=== PATIENT | female | born 1975 | race Caucasian/White ===

== ENCOUNTER 2018-02-10 08:06 | Inpatient (IN) | payer MEDICAID, OTHER ==
[2018-02-10 08:06] VITALS: BMI 41.5
[2018-02-10] MEDS ORDERED: Albuterol-Ipratrop 3 mg / 0.5 (3 ml) UD INH STA (09:27)
[2018-02-10] MEDS ORDERED: MethylPREDNISolone 40 mg Vial IVP STA (09:29)
[2018-02-10] MEDS ORDERED: Albuterol-Ipratrop 3 mg / 0.5 (3 ml) UD ONE (09:38)
[2018-02-10 09:59] LABS: BASO % 0.5 % (0.0-2.0); EOS # 0.3 K/uL (0.0-0.7); EOS % 3.4 % (0.0-4.0); HEMOGLOBIN 6.7 g/dL (11.0-16.0); LYMPH # 1.2 K/uL (1.0-4.3); LYMPH % 13.2 % (20.0-40.0); MEAN CORPUSCULAR HEMOGLOBIN 16.3 pg (27.0-31.0); MEAN CORPUSCULAR HGB CONC 28.7 g/dL (33.0-37.0); MEAN PLATELET VOLUME 8.3 fL (7.2-11.7); MONO # 0.8 K/uL (0.0-0.8); MONO % 9.7 % (0.0-10.0); NEUT # 6.4 K/uL (1.8-7.0); NEUT % 73.2 % (50.0-75.0); RBC 4.13 Mil/uL (3.80-5.20); RED CELL DISTRIBUTION WIDTH 21.2 % (11.5-14.5); WHITE BLOOD COUNT 8.7 K/uL (4.8-10.8)
[2018-02-10 10:09] LABS: MEAN CELL VOLUME 56.8 fL (81.0-99.0)
[2018-02-10 10:26] LABS: ALB/GLOB RATIO 1.2 (1.0-2.1); ALBUMIN 4.3 g/dL (3.5-5.0); ALT/SGPT 22 U/L (9-52); AST/SGOT 35 U/L (14-36); BLOOD UREA NITROGEN 11 mg/dL (7-17); CALCIUM 8.6 mg/dl (8.6-10.4); GFR NON-AFRICAN AMERICAN > 60
--- NOTE | 2018-02-10 10:28 | RAD ---
Date of service: 02/10/2018 HISTORY: r/o PNA COMPARISON: No prior. TECHNIQUE: Chest PA and lateral FINDINGS: LUNGS: No active pulmonary disease. PLEURA: No significant pleural effusion identified. No pneumothorax apparent. CARDIOVASCULAR: No aortic atherosclerotic calcification present. Normal cardiac size. No pulmonary vascular congestion. OSSEOUS STRUCTURES: No significant abnormalities. VISUALIZED UPPER ABDOMEN: Normal. OTHER FINDINGS: None. IMPRESSION: No active disease.
--- NOTE | 2018-02-10 10:30 | C.PDOC ---
History Of Present Illness 42 year old female with a history of uterine fibroids, heavy menstruations, and iron deficiency anemia presents to the ED for evaluation of dry cough associated with intermittent tactile fever, chills, dizziness, headache, and palpitations for 2 weeks. Cough worsened this week to be productive of yellow sputum. The patient reports the cough is worse at night with audible wheezing. She admits to taking Robitussin with no improvement in her symptoms. The patient states her mother and siblings have asthma, she has not been diagnosed with asthma, and has never used a nebulizer or inhaler. No sick contacts, recent antibiotic use, or recent travel. LMP 01/15/18. Denies hemoptysis, nausea, vomiting, diarrhea, abdominal pain, melena, sore throat, weakness, numbness, vision changes, and any other associated symptoms. Time Seen by Provider: 02/10/18 08:30 Chief Complaint (Nursing): Cough, Cold, Congestion History Per: Patient, [employer] (Raquel Gallagher) History/Exam Limitations: no limitations Onset/Duration Of Symptoms: Other (x2 months. ) Current Symptoms Are (Timing): Still Present Recent travel outside of the [place]: No Past Medical History Reviewed: Historical Data, Nursing Documentation, Vital Signs Vital Signs: Last Vital Signs Temp 99.3 F 02/10/18 08:14 Pulse 90 02/10/18 08:14 Resp 18 02/10/18 08:14 BP 118/66 02/10/18 08:14 Pulse Ox 99 02/10/18 08:14 - Medical History PMH: Anemia Other PMH: Fibroids, Heavy Menstruation Surgical History: - [facility] Procedures BILAT TUBAL DIVISION NEC (11/10/14) LOW CERVICAL (11/10/14) Family History: States: Unknown Family Hx - Social History Hx Tobacco Use: No Hx Alcohol Use: No Hx Substance Use: No - Immunization History Hx Tetanus Toxoid Vaccination: No Hx Influenza Vaccination: No Hx Pneumococcal Vaccination: No Review Of Systems Except As Marked, All Systems Reviewed And Found Negative. Constitutional: Positive for: Fever (subjective. ), Chills, Malaise Eyes: Negative for: Vision Change ENT: Positive for: Nose Congestion. Negative for: Ear Pain, Nose Discharge, Throat Pain (sore. ), Throat Swelling Cardiovascular: Positive for: Palpitations, Light Headedness. Negative for: Chest Pain Respiratory: Positive for: Cough (dry), Shortness of Breath Gastrointestinal: Negative for: Nausea, Vomiting, Abdominal Pain, Diarrhea Genitourinary: Negative for: Dysuria, Frequency Musculoskeletal: Negative for: Neck Pain, Back Pain Skin: Negative for: Rash Neurological: Positive for: Headache. Negative for: Weakness, Numbness, Inco ordination Physical Exam - Physical Exam Appears: Well, Non-toxic, No Acute Distress Skin: Warm, Dry Head: Atraumatic, Normacephalic Eye(s): bilateral: Normal Inspection, PERRL, EOMI Ear(s): Bilateral: Normal Nose: Normal, No Discharge Oral Mucosa: Moist Throat: Normal, No Erythema, No Exudate Neck: Normal ROM, Supple Lymphatic: Normal Exam Cardiovascular: Rhythm Regular, No Murmur Respiratory: No Accessory Muscle Use, No Rales, Rhonchi (intermittent bila terally), Wheezing (expiratory wheezing bilaterally.) Gastrointestinal/Abdominal: Normal Exam, Bowel Sounds (normoactive), No Soft, Tenderness Back: Normal Inspection, No CVA Tenderness, No Paraspinal Tenderness Extremity: Normal ROM (x4) Extremity: Bilateral: Atraumatic, No Pedal Edema, Normal Color And Temperature, Normal ROM Pulses: Left Radial: Normal, Right Radial: Normal Neurological/Psych: Oriented x3, Normal Speech, Normal Cognition, Normal Motor, Normal Sensation Gait: Steady ED Course And Treatment - Laboratory Results Result Diagrams: 02/10/18 09:52 02/10/18 09:52 Lab Interpretation: Abnormal Urine POC: Negative O2 Sat by Pulse Oximetry: 99 (RA) Pulse Ox Interpretation: Normal - Radiology CXR: Viewed By Me, Read By Radiologist CXR Interpretation: Yes: No Acute Disease - Other Rad CXR X-Ray: Viewed By Me, Read By Radiologist Interpretation: HISTORY: r/o PNA. COMPARISON: No prior. TECHNIQUE: Chest PA and lateral. FINDINGS: LUNGS: No active pulmonary disease. PLEURA: No significant pleural effusion identified. No pneumothorax apparent. CARDIOVASCULAR: No aortic atherosclerotic calcification present. Normal cardiac size. No pulmonary vascular congestion. OSSEOUS STRUCTURES: No significant abnormalities. VISUALIZED UPPER ABDOMEN: Normal. OTHER FINDINGS: None. IMPRESSION: No active disease. Medical Decision Making Medical Decision Making: Initial Plan: -CBC, CMP CXR Rapid FLU A/B Duoneb Solu-medrol Patient reports no improvement in symptoms after steroid and duoneb treatments. Lung exam remains unchanged, continues with bilateral expiratory wheezing and intermittent rhonchi. Progress/Update: -Hgb 6.7, will transfuse starting with 1 unit PRBC -The patient consented to blood transfusion after lengthy discussion of the risks and benefits with the help of emergency medical tech Eileen. Patient was given the opportunity to ask questions. Patient verbalized understanding of the discussion. -11:46am : Spoke with the hospitalist, Dr. Miranda who accepted patient for inpatient admission to telemetry with diagnoses of asthma and anemia. Pending EKG, hemoccult. Disposition - Disposition Disposition: HOSPITALIZED Disposition Time: 11:46 Condition: STABLE - Clinical Impression Clinical Impression: Cough, Anemia - PA / HOGSHEAD HOOPER / Resident Statement MD/DO has reviewed & agrees with the documentation as recorded. - Scribe Statement The provider has reviewed the documentation as recorded by the Scribe (Aileen Llanos) All medical record entries made by the Scribe were at my direction and personally dictated by me. I have reviewed the chart and agree that the record accurately reflects my personal performance of the history, physical exam, medical decision making, and the department course for this patient. I have also personally directed, reviewed, and agree with the discharge instructions and disposition. Decision To Admit - Pt Status Changed To: Hospital Disposition Of: Inpatient - Admit Certification Admit to Inpatient:: After my assessment, the patient will require hospitalization for at least two midnights. This is because of the severity of symptoms shown, intensity of services needed, and/or the medical risk in this patient being treated as an outpatient. - InPatient: Physician Admission Certification: I certify that this patient requires 2 or more midnights of care for the following reason:: 42 y/o with PMH of heavy menstruation with flu-like symptoms for 2 weeks; worsening SOB and cough over the last 5 days. Associated intermittent palpitations, headache, and lighthea dedness. Bilateral wheezing on exam. Labwork significant for Hgb 6.7, requiring transfusion. Pt admitted to telemetry with diagnosis of symptomatic anemia. - . Bed Request Type: Telemetry Patient Diagnosis: Anemia, Cough
[2018-02-10] MEDS: MethylPREDNISolone 40 mg Vial IVP SCH ×2 (12:55→21:59)
[2018-02-10] MEDS: AZITHROMYCIN 500 MG/250 ML IVPB SCH (12:59)
[2018-02-10] MEDS: NS IVPB SCH (12:59)
[2018-02-10] MEDS ORDERED: MethylPREDNISolone 40 mg Vial ONE (13:03)
[2018-02-10] MEDS ORDERED: Azithromycin 500mg/250ML NS 500 MG/250 ML BAG IVPB ONE (13:03)
[2018-02-10] MEDS: Albuterol-Ipratrop 3 mg / 0.5 (3 ml) UD INH SCH (13:30)
--- NOTE | 2018-02-10 15:36 | CP.PCM.HP ---
<Beba Gregorio - Last Filed: 02/10/18 17:14> History of Present Illness - History of Present Illness History of Present Illness: Patient is a 42 year old female with a PMHx of iron deficiency anemia, uterine myoma, presents to hospital with 5 days of progressive cough, malaise, weakness and fatigue. Patient reports cough is productive of yellow sputum, patient reports chills and body aches. Patient reports son has a mild cough, and denies other sick contacts of irritating environmental exposure. Patient reports recent menstruation ending in early february, with 15 days of heavy bleeding. Patient reports a previous diagnosis of iron deficience anemia 8 years ago treated with supplements, and then again during 3 years ago. Denies headaches, chest pain, palpitations, SOB, nausea, diarrhea, blood in stool or sputum. PMHx: iron def anemia, uterine myome PSHx: B/L tubal ligation SocHx: denies, unemployed, lives home with family Allergies: NKDA, tuna fish Meds: Denies Present on Admission - Present on Admission Any Indicators Present on Admission: No Review of Systems - Constitutional Constitutional: Chills, Daytime Sleepiness, Fatigue, Fever, Malaise, Weakness - EENT Nose/Mouth/Throat: Sore Throat. absent: Epistaxis - Cardiovascular Cardiovascular: absent: Chest Pain, Dyspnea, Edema, Rapid Heart Rate - Respiratory Respiratory: Cough. absent: Dyspnea, Hemoptysis - Gastrointestinal Gastrointestinal: absent: Abdominal Pain, Heartburn, Hematochezia, Nausea - Genitourinary Genitourinary: absent: Dysuria, Hematuria - Reproductive: Female Reproductive:Female: Menses >/= 8 Days, Heavy Menses - Menstruation Menstruation: Menses >/= 8 Days, Heavy Menses - Musculoskeletal Musculoskeletal: Muscle Weakness, Myalgias - Neurological Neurological: absent: Disequilibrium, Dizziness Past Patient History - Infectious Disease Hx of Infectious Diseases: None - Past Medical History & Family History Past Medical History?: Yes - Past Social History Smoking Status: Never Smoked - CARDIAC Hx Cardiac Disorders: No - PULMONARY Hx Asthma: Yes - NEUROLOGICAL Hx Neurological Disorder: No - HEENT Hx HEENT Problems: No - RENAL Hx Chronic Kidney Disease: No - ENDOCRINE/METABOLIC Hx Endocrine Disorders: No - HEMATOLOGICAL/ONCOLOGICAL Hx Anemia: Yes - INTEGUMENTARY Hx Dermatological Problems: No - MUSCULOSKELETAL/RHEUMATOLOGICAL Hx Musculoskeletal Disorders: No - GASTROINTESTINAL Hx Gastrointestinal Disorders: No - GENITOURINARY/GYNECOLOGICAL Hx Genitourinary Disorders: No - PSYCHIATRIC Hx Substance Use: No - SURGICAL HISTORY Hx Surgeries: Yes Hx Breast Biopsy: Yes - ANESTHESIA Hx Anesthesia: Yes Hx Anesthesia Reactions: No Meds Allergies/Adverse Reactions: Allergies Allergy/AdvReac Type Severity Reaction Status Date / Time tuberculin, purified protein Allergy Verified 09/30/15 16:23 deriva tuna Allergy Severe URTICARIA Uncoded 09/13/14 23:24 Physical Exam - Constitutional Appears: Non-toxic, No Acute Distress - Head Exam Head Exam: ATRAUMATIC, NORMAL INSPECTION, NORMOCEPHALIC - Eye Exam Eye Exam: EOMI, Normal appearance - ENT Exam ENT Exam: Mucous Membranes Moist, Normal Exam - Neck Exam Neck exam: Positive for: Normal Inspection. Negative for: Lymphadenopathy - Respiratory Exam Respiratory Exam: Rhonchi, NORMAL BREATHING PATTERN. absent: Accessory Muscle Use, Respiratory Distress - Cardiovascular Exam Cardiovascular Exam: REGULAR RHYTHM, +S1, +S2. absent: Tachycardia, Systolic Murmur - GI/Abdominal Exam GI & Abdominal Exam: Normal Bowel Sounds, Soft. absent: Distended, Tenderness - Extremities Exam Extremities exam: Positive for: normal inspection. Negative for: calf tenderness, pedal edema - Neurological Exam Neurological exam: Alert, Normal Gait, Oriented x3 - Psychiatric Exam Psychiatric exam: Normal Affect, Normal Mood - Skin Skin Exam: Diaphoretic, Intact, Normal Color, Warm Results - Vital Signs Recent Vital Signs: Last Vital Signs Temp 98.2 F 02/10/18 14:35 Pulse 103 H 02/10/18 14:35 Resp 20 02/10/18 14:35 BP 122/60 02/10/18 14:35 Pulse Ox 99 02/10/18 15:22 - Labs Result Diagrams: 02/10/18 09:52 02/10/18 09:52 Labs: Laboratory Results - last 24 hr 02/10/18 02/10/18 02/10/18 09:52 09:52 09:57 WBC 8.7 RBC 4.13 Hgb 6.7 L Hct 23.4 L MCV 56.8 L D MCH 16.3 L MCHC 28.7 L RDW 21.2 H Plt Count 310 MPV 8.3 Neut % (Auto) 73.2 Lymph % (Auto) 13.2 L Hendricks % (Auto) 9.7 Eos % (Auto) 3.4 Baso % (Auto) 0.5 Neut # (Auto) 6.4 Lymph # (Auto) 1.2 Hendricks # (Auto) 0.8 Eos # (Auto) 0.3 Baso # (Auto) 0.0 Differential Comment Sodium 136 Potassium 4.2 Chloride 100 Carbon Dioxide 24 Anion Gap 16 BUN 11 Creatinine 0.7 Est GFR ( Amer) > 60 Est GFR (Non-Af Amer) > 60 Random Glucose 94 Calcium 8.6 Total Bilirubin 0.5 AST 35 ALT 22 Alkaline Phosphatase 76 Total Protein 8.0 Albumin 4.3 Globulin 3.7 Albumin/Globulin Ratio 1.2 Influenza Typ A,B (EIA) Negative for flu a/b Blood Type Antibody Screen Crossmatch 02/10/18 12:28 WBC RBC Hgb Hct MCV MCH MCHC RDW Plt Count MPV Neut % (Auto) Lymph % (Auto) Hendricks % (Auto) Eos % (Auto) Baso % (Auto) Neut # (Auto) Lymph # (Auto) Hendricks # (Auto) Eos # (Auto) Baso # (Auto) Differential Comment Sodium Potassium Chloride Carbon Dioxide Anion Gap BUN Creatinine Est GFR ( Amer) Est GFR (Non-Af Amer) Random Glucose Calcium Total Bilirubin AST ALT Alkaline Phosphatase Total Protein Albumin Globulin Albumin/Globulin Ratio Influenza Typ A,B (EIA) Blood Type O POSITIVE Antibody Screen Negative Crossmatch See Detail Assessment & Plan - Assessment and Plan (Free Text) Assessment: 42 year old femal with PMHx of iron deficiency anemia and uterine myoma admitted with 5 days of cough, myalgias, weakness; anemic with hgb of 6.7 Plan: Anemia -hgb 6.7 on admission -1U PRBC -am h/h -f/u iron panel -f/u fecal occult Cough -CXR WNL -solumedrol -duonebs -azithromycin Ppx -GI ppx -SCD DVT ppx Discussed with Dr. Miranda -Beba Gregorio, PGY-1 <Jorge Miranda - Last Filed: 02/11/18 18:30> Results - Vital Signs Recent Vital Signs: Last Vital Signs Temp 97.9 F 02/11/18 07:10 Pulse 92 H 02/11/18 07:53 Resp 20 02/11/18 07:10 BP 128/70 12/07/18 07:10 Pulse Ox 98 02/11/18 07:10 - Labs Result Diagrams: 02/11/18 08:17 02/11/18 08:17 Labs: Laboratory Results - last 24 hr 02/10/18 02/11/18 02/11/18 12:28 08:17 08:17 WBC 15.3 H D RBC 4.37 Hgb 7.6 L Hct 26.6 L MCV 60.9 L D MCH 17.5 L MCHC 28.7 L RDW 25.1 H Plt Count 342 MPV 8.4 Neut % (Auto) 94.0 H Lymph % (Auto) 3.9 L Hendricks % (Auto) 1.9 Eos % (Auto) 0.0 Baso % (Auto) 0.2 Neut # (Auto) 14.3 H Lymph # (Auto) 0.6 L Hendricks # (Auto) 0.3 Eos # (Auto) 0.0 Baso # (Auto) 0.0 Neutrophils % (Manual) 93 H Lymphocytes % (Manual) 4 L Monocytes % (Manual) 3 Platelet Estimate Normal Polychromasia Slight Hypochromasia (manual) Moderate Anisocytosis (manual) Moderate Microcytosis (manual) Moderate Ovalocytes Slight Sodium 137 Potassium 4.0 Chloride 105 Carbon Dioxide 19 L Anion Gap 17 BUN 14 Creatinine 0.6 L Est GFR ( Amer) > 60 Est GFR (Non-Af Amer) > 60 Random Glucose 170 H Calcium 8.7 Total Bilirubin 0.5 AST 20 ALT 19 Alkaline Phosphatase 78 Total Protein 7.8 Albumin 4.3 Globulin 3.5 Albumin/Globulin Ratio 1.2 Stool Occult Blood Crossmatch See Detail 02/11/18 09:57 WBC RBC Hgb Hct MCV MCH MCHC RDW Plt Count MPV Neut % (Auto) Lymph % (Auto) Hendricks % (Auto) Eos % (Auto) Baso % (Auto) Neut # (Auto) Lymph # (Auto) Hendricks # (Auto) Eos # (Auto) Baso # (Auto) Neutrophils % (Manual) Lymphocytes % (Manual) Monocytes % (Manual) Platelet Estimate Polychromasia Hypochromasia (manual) Anisocytosis (manual) Microcytosis (manual) Ovalocytes Sodium Potassium Chloride Carbon Dioxide Anion Gap BUN Creatinine Est GFR ( Amer) Est GFR (Non-Af Amer) Random Glucose Calcium Total Bilirubin AST ALT Alkaline Phosphatase Total Protein Albumin Globulin Albumin/Globulin Ratio Stool Occult Blood Negative Crossmatch Attending/Attestation - Attestation I have personally seen and examined this patient.: Yes I have fully participated in the care of the patient.: Yes I have reviewed all pertinent clinical information: Yes Notes (Text): Seen and examined History taken from the patient with the resident assessment and the plan discussed I agree with the documentation
[2018-02-10 23:57] VITALS: RESP 20
[2018-02-11] MEDS: Albuterol-Ipratrop 3 mg / 0.5 (3 ml) UD INH SCH ×2 (00:25→05:15)
[2018-02-11] MEDS: MethylPREDNISolone 40 mg Vial IVP SCH ×2 (04:26→12:33)
[2018-02-11 07:49] VITALS: BP 128/70; TEMP 97.9; O2SAT 98
[2018-02-11 07:56] VITALS: PULSE 92
[2018-02-11 08:26] LABS: BASO % 0.2 % (0.0-2.0); HEMOGLOBIN 7.6 g/dL (11.0-16.0); LYMPH # 0.6 K/uL (1.0-4.3); LYMPH % 3.9 % (20.0-40.0); MEAN CORPUSCULAR HEMOGLOBIN 17.5 pg (27.0-31.0); MEAN CORPUSCULAR HGB CONC 28.7 g/dL (33.0-37.0); MEAN PLATELET VOLUME 8.4 fL (7.2-11.7); MONO # 0.3 K/uL (0.0-0.8); MONO % 1.9 % (0.0-10.0); NEUT # 14.3 K/uL (1.8-7.0); NRBC % 0.1 % (0.0-2.0); PLATELET COUNT 342 K/uL (130-400); RBC 4.37 Mil/uL (3.80-5.20); RED CELL DISTRIBUTION WIDTH 25.1 % (11.5-14.5)
[2018-02-11 08:28] LABS: MEAN CELL VOLUME 60.9 fL (81.0-99.0); WHITE BLOOD COUNT 15.3 K/uL (4.8-10.8)
[2018-02-11 08:51] LABS: ALB/GLOB RATIO 1.2 (1.0-2.1); ALBUMIN 4.3 g/dL (3.5-5.0); ALT/SGPT 19 U/L (9-52); AST/SGOT 20 U/L (14-36); BLOOD UREA NITROGEN 14 mg/dL (7-17); CALCIUM 8.7 mg/dl (8.6-10.4); GFR NON-AFRICAN AMERICAN > 60
[2018-02-11 09:16] LABS: ANISOCYTOSIS MODERATE; LYMPHOCYTE 4 % (20-40); MONOCYTE 3 % (0-10); NEUTROPHIL 93 % (50-75); PLATELET ESTIMATE NORMAL (NORMAL); TOTAL CELLS COUNTED 100
[2018-02-11 09:17] LABS: HYPOCHROMIC MODERATE; MICROCYTOSIS MODERATE; OVALOCYTES SLIGHT; POLYCHROMIC SLIGHT
[2018-02-11] MEDS ORDERED: Pantoprazole 40 mg EC Tab PO SCH (10:00)
[2018-02-11] MEDS ORDERED: Pneumococcal 23-Valent Vaccine IM ONE (12:00)
[2018-02-11] MEDS: NS IVPB SCH (13:00)
[2018-02-11] MEDS ORDERED: Influenza Vaccine 60 MCG/0.5 ML SYR (3 yr & up) IM ONE (13:00)
[2018-02-11] MEDS: AZITHROMYCIN 500 MG/250 ML IVPB SCH (13:00)
--- NOTE | 2018-02-11 13:25 | CP.PCM.DIS ---
Provider - Provider Date of Admission: 02/10/18 12:08 Attending physician: Jorge Miranda MD Hospital Course - Lab Results Lab Results: Most Recent Lab Values WBC 15.3 K/uL (4.8-10.8) H D 02/11/18 08:17 RBC 4.37 Mil/uL (3.80-5.20) 02/11/18 08:17 Hgb 7.6 g/dL (11.0-16.0) L 02/11/18 08:17 Hct 26.6 % (34.0-47.0) L 02/11/18 08:17 MCV 60.9 fL (81.0-99.0) L D 02/11/18 08:17 MCH 17.5 pg (27.0-31.0) L 02/11/18 08:17 MCHC 28.7 g/dL (33.0-37.0) L 02/11/18 08:17 RDW 25.1 % (11.5-14.5) H 02/11/18 08:17 Plt Count 342 K/uL (130-400) 02/11/18 08:17 MPV 8.4 fL (7.2-11.7) 02/11/18 08:17 Neut % (Auto) 94.0 % (50.0-75.0) H 02/11/18 08:17 Lymph % (Auto) 3.9 % (20.0-40.0) L 02/11/18 08:17 Creek % (Auto) 1.9 % (0.0-10.0) 02/11/18 08:17 Eos % (Auto) 0.0 % (0.0-4.0) 02/11/18 08:17 Baso % (Auto) 0.2 % (0.0-2.0) 02/11/18 08:17 Neut # (Auto) 14.3 K/uL (1.8-7.0) H 02/11/18 08:17 Lymph # (Auto) 0.6 K/uL (1.0-4.3) L 02/11/18 08:17 Creek # (Auto) 0.3 K/uL (0.0-0.8) 02/11/18 08:17 Eos # (Auto) 0.0 K/uL (0.0-0.7) 02/11/18 08:17 Baso # (Auto) 0.0 K/uL (0.0-0.2) 02/11/18 08:17 Neutrophils % (Manual) 93 % (50-75) H 02/11/18 08:17 Lymphocytes % (Manual) 4 % (20-40) L 02/11/18 08:17 Monocytes % (Manual) 3 % (0-10) 02/11/18 08:17 Differential Comment 02/10/18 09:52 Platelet Estimate Normal (NORMAL) 02/11/18 08:17 Polychromasia Slight 02/11/18 08:17 Hypochromasia (manual) Moderate 02/11/18 08:17 Anisocytosis (manual) Moderate 02/11/18 08:17 Microcytosis (manual) Moderate 02/11/18 08:17 Ovalocytes Slight 02/11/18 08:17 Sodium 137 mmol/L (132-148) 02/11/18 08:17 Potassium 4.0 mmol/L (3.6-5.2) 02/11/18 08:17 Chloride 105 mmol/L (98-107) 02/11/18 08:17 Carbon Dioxide 19 mmol/L (22-30) L 02/11/18 08:17 Anion Gap 17 (10-20) 02/11/18 08:17 BUN 14 mg/dL (7-17) 02/11/18 08:17 Creatinine 0.6 mg/dL (0.7-1.2) L 02/11/18 08:17 Est GFR ( Amer) > 60 02/11/18 08:17 Est GFR (Non-Af Amer) > 60 02/11/18 08:17 Random Glucose 170 mg/dL (65-105) H 02/11/18 08:17 Calcium 8.7 mg/dl (8.6-10.4) 02/11/18 08:17 Total Bilirubin 0.5 mg/dL (0.2-1.3) 02/11/18 08:17 AST 20 U/L (14-36) 02/11/18 08:17 ALT 19 U/L (9-52) 02/11/18 08:17 Alkaline Phosphatase 78 U/L (38-126) 02/11/18 08:17 Total Protein 7.8 g/dL (6.3-8.3) 02/11/18 08:17 Albumin 4.3 g/dL (3.5-5.0) 02/11/18 08:17 Globulin 3.5 gm/dL (2.2-3.9) 02/11/18 08:17 Albumin/Globulin Ratio 1.2 (1.0-2.1) 02/11/18 08:17 Stool Occult Blood Negative (NEGATIVE) 02/11/18 09:57 Influenza Typ A,B (EIA) Negative for flu a/b (NEGATIVE) 02/10/18 09:57 Blood Type O POSITIVE 02/10/18 12:28 Antibody Screen Negative 02/10/18 12:28 Crossmatch See Detail 02/10/18 12:28 Discharge Exam - Head Exam Head Exam: ATRAUMATIC, NORMAL INSPECTION, NORMOCEPHALIC Discharge Plan - Follow Up Plan Condition: STABLE Disposition: HOME/ ROUTINE Instructions: Heart Healthy Diet, Asthma, Adult (DC), Normocytic Normochromic Anemia (DC) Additional Instructions: Patient is stable for discharge home. She is instructed to obtain iron supplement over the counter, 325mg, to be taken 2-3 times per day or as directed on bottle. Patient is encouraged to eat a diet rich in green leafy vegetables including spinach and kale. Patient is being given a referral to follow up with Dr. Suresh in clinic after obtaining [facility] care. Patient is advised to return to the hospital with any worsening of symptoms. Referrals: Melina Suresh MD [Staff Provider] -
[2018-02-13] MEDS ORDERED: Influenza Vaccine 22.5 mcg/0.25 ml Syr (6 - 35 months) IM ONE (10:00)
== END 2018-02-11 14:14 | disposition home or self-care (01) | DRG 141 ==
LOC: C.ER 08:06 → C.9E 12:08 → C.5S 14:09
PROVIDERS: ADMIT Internal Medicine; ATTEND Internal Medicine
DX: J45.909 Unspecified asthma, uncomplicated (principal); D25.9 Leiomyoma of uterus, unspecified; D64.9 Anemia, unspecified; M79.10 Myalgia, unspecified site

== ENCOUNTER 2018-06-08 08:01 | Outpatient (CLI) | payer OTHER | END 2018-06-08 08:02 | disposition home or self-care (01) | LOC: C.CTH 08:01 | DX: R10.12 Left upper quadrant pain (principal); R20.2 Paresthesia of skin ==